=== PATIENT | female | born 1935 | race Caucasian/White ===

== ENCOUNTER 2025-03-14 13:03 | Outpatient (AMB) | payer OTHER, SELFPAY ==
--- NOTE | 2025-03-14 13:05 | A.OFFPC_ITS ---
Vital Signs 03/14/25 13:06 03/14/25 14:02 Height 5 ft 5 in Weight 123 lb BMI 20.5 BP 140/80 H 138/78 Blood Pressure Location Lt brachial Lt brachial Position Sitting Respiration 16 Pulse 86 Pulse Source Pulse Oximeter Temp 96.8 F Temp Source Temporal Artery Scan Pulse Oximetry (%) 98 Oxygen Delivery Method Room Air Intake Visit Reasons: Annual [employer] Required: No Accompanied by: Self / Same As Patient Allergies No Known Allergies Allergy (Verified 03/14/25 13:08) Medication List - Last Reconciled 03/14/25 by Britta Rolon MD amlodipine 5 mg PO DAILY levothyroxine (Synthroid) 100 mcg PO 4XW levothyroxine (Synthroid) 88 mcg PO 2XW Tobacco use date assessed: 03/14/25 Fall risk assessment: No Falls in past year Last assessed Fall Risk: 03/14/25 Dental Screening Dental Screen Date: 03/14/25 Did you have a dental visit in the last 12 months?: Yes Did you have a dental problem in the last 6 months where you did not have access to dental care?: No Was dental information given to patient?: Patient has dentist HPI HPI Comments History of Present Illness Details The patient is an 89-year-old female presenting to [facility] hospital care and for a physical examination. Left hand tremor and numbness: The patient reports an intermittent, subtle tremor in her left hand that is not associated with any specific action, such as holding a cup. She also experiences periodic numbness in her left forearm between the wrist and elbow, which occurs separately from the tremor and is not associated with neck pain. Unilateral right foot edema and paresthesia: The patient reports intermittent swelling of her right foot, which has been occurring for about a year. This swelling is typically noticed at night while sitting in a recliner with her feet elevated and is not painful. The episodes are sporadic, sometimes with weeks in between occurrences, and the left foot is never affected to the same degree. She also experiences occasional pins and needles in the right foot. Pruritus of the legs: The patient has experienced approximately three episodes of severe leg itching over the last five months. The first episode occurred after shaving her legs and lasted for three days. Another episode was triggered by applying Jergens lotion for extra dry skin. The patient reports use of very hot water during showers, which may contribute to skin dryness. She denies any burning sensation associated with the itch. She has an upcoming appointment with a buckle attacher at [facility]. Fatigue: The patient reports periodically experiencing low energy, which is a change from her baseline of always having a lot of energy. She suspects her age is a contributing factor. Hypertension: The patient monitors her blood pressure at home every morning and presented her log for review. Her readings are generally well-controlled in the 120s, though she noted one elevated reading of 144/73, which she attributed to consuming Mong[place]ian food the previous night. Hypothyroidism: The patient is on a stable regimen for hypothyroidism, taking Synthroid 100 mcg four times a week and Synthroid 88 mcg twice a week. Her last lab results were great, but she had been fluctuating previously. Osteoporosis Screening: The patient has an upcoming bone density scan with Dr. Valladares to be scheduled, recent ones were canceled. Review of Systems - Constitutional: Reports intermittent l ow energy/fatigue. - Cardiovascular: Denies chest pain or c hest discomfort. - Musculoskeletal: Reports intermittent trigger finger. Reports a history of arthritis of the spine, right thoracic spine pain, and groin pain. Reports spasms in the left cintron area. Denies experiencing calf pain with right foot swelling. - Integumentary: Reports severe, intermi ttent itching on her legs without a burning sensation. - Neurological: per hpi Physical Exam - Vitals: Blood pressure is 138/78 mmHg. - Neck: Carotids with no bruits. - Cardiovascular: Normal heart sounds ar e auscultated with a soft murmur. - Lungs: Clear to auscultation bilateral ly with no wheezing. - Abdomen: Soft, non tender, non-distend ed, with no tenderness on palpation. - Extremities: The right foot is noted t o be more swollen than the left. There is no pain on palpation of the legs. 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 -- Skin: Seborrheic keratoses are presen t on the back. Excoriations and dryness are also noted on the back. Assessment and Plan 1. Unilateral right lower extremity stacie a - The patient presents with intermittent , painless, unilateral right foot swelling, which is more noticeable on exam than the left. - To evaluate for underlying venous insu fficiency or other pathology, an ultrasound of the right leg will be ordered. 2. Pruritus of the legs - The patient reports severe intermitten t itching, likely secondary to xerosis, which may be exacerbated by her use of hot showers and irritating lotions. - The plan is to advise her to use lukew arm water, switch from Jergens to a thicker, emollient cream like Eucerin, and to apply it to damp skin. - She will also proceed with her already scheduled dermatology appointment for further evaluation. 3. Left upper extremity tremor and numbn ess - The patient's intermittent, separate s ymptoms of tremor and numbness may be associated with cervical spine pathology, such as stenosis - The patient is advised to monitor for any correlation with neck pain and to discuss these symptoms with Dr. Valladares to determine if cervical spine imaging is warranted. 4. Hypothyroidism - The patient is on Synthroid(brand name only per preference) - Her fatigue could potentially be relat ed to thyroid levels. - The plan is to continue her current re gimen of Synthroid 100 mcg four times a week and 88 mcg twice a week. - Prescriptions were sent to her pharmac y with no substitution noted. - Fasting labs, including a TSH, will be ordered for re-evaluation. 5. Essential Hypertension - The patient's blood pressure is well-c ontrolled based on her home monitoring log. 6. Fatigue - The patient reports low energy, which she attributes to her age. - To investigate other potential contrib uting factors, labs including iron panel, thyroid panel, vitamin d will be checked 7. Health Maintenance - obtain preventive screening reports in cluding bone density from Dr. Valladares. Follow up in 6 months Discussion Notes I discussed my assessment and plan with the patient for her multiple concerns. Regarding the intermittent swelling in her right foot, I explained that since it is on one side, I would like to get an ultrasound to investigate further. Patient Instructions - Our office will send an order for an u ltrasound of your right leg - Please go for blood work. You will nee d to fast for this test, which means no food or drink other than water for 8-12 hours beforehand. - For the itching on your legs, try usin g lukewarm water in the shower instead of very hot water. After showering, while your skin is still a bit damp, apply a thick, unscented lotion like Eucerin. - Keep your scheduled appointment with francisco duenas buckle attacher. [facility] Medical History (Updated 03/14/25 @ 17:33 by Britta Rolon MD) Right ankle swelling Fatigue Osteoporosis Osteoarthritis Acquired hypothyroidism Primary hypertension Surgical History (Updated 03/14/25 @ 12:56 by Britta Rolon MD) H/O hand surgery Hx of cataract surgery Family History (Updated 03/14/25 @ 12:58 by Britta Rolon MD) Other Bladder problem Diabetes mellitus Stroke Social History Housing: House Patient Tobacco Use Status: Former Tobacco user Years Smoked: 10 years e-Cigarette/Vaping Use: Never Used service: No Current occupational status: retired Questionnaire PHQ-9 Over the last 2 weeks, how often have you been bothered by any of the following problems? 1. Little interest or pleasure in doing things: not at all 2. Feeling down, depressed, or hopeless: not at all 3. Trouble falling or staying asleep, or sleeping too much: not at all 4. Feeling tired or having little energy: not at all 5. Poor appetite or overeating: not at all 6. Feeling bad about yourself - or that you are a failure or have let yourself or your family down: not at all 7. Trouble concentrating on things, such as reading the newspaper or watching television: not at all 8. Moving or speaking so slowly that other people could have noticed. Or the opposite - being so fidgety or restless that you have been moving around a lot more than usual: not at all 9. Thoughts that you would be better off or of hurting yourself in some way: not at all Total score: 0 Depression Screening Interpretation: Negative Depression Screening Done: Yes 73508 - PHQ-9 Billing: Yes Source: Developed by Drs. Endy Raygoza, Raiza Fox, Alexis Tejada and colleagues, with an educational claire from [employer]. Thrive Questionnaire Date Thrive assessed: 03/14/25 I am a: Patient What is your living situation today?: I have a steady place to live Within the past 12 months, did the food you bought not last and you didn't have the money to get more?: Never true Within the past 12 months, did you worry whether your food would run out before you got money to buy more?: Never true Do you have trouble paying for medicines?: No Do you have trouble getting transportation to medical appointments?: No Do you have trouble paying your heating and electricity bill?: No Do you have trouble taking care of your child, family member or friend?: No Do you have trouble with day-to-day activities such as bathing, preparing meals, shopping, managing finances, etc.?: No Are you currently unemployed and looking for a job?: No Are you interested in more education?: No Please select the resources that you would like help with: None Currently or been in a relationship where the following occur: No concerns reported THRIVE Score: 0 AUDIT C Alcohol Use Questionnaire (AUDIT-C) 1. How often do you have a drink containing alcohol?: 4 or more times a week 2. How many drinks containing alcohol do you have on a typical day when you are drinking?: 1 or 2 3. How often do you have six or more drinks on one occasion?: Never Total Score: 4 ROE-7 AMB Questionnaire ROE-7 Date ROE - 7 assessed: 03/14/25 Feeling nervous, anxious, or on edge: 0 = Not at all Not being able to stop or control worryin = Not at all Worrying too much about different things: 0 = Not at all Trouble relaxin = Not at all Being so restless that it is hard to sit still: 0 = Not at all Becoming easily annoyed or irritable: 0 = Not at all Feeling afraid as if something awful might happen: 0 = Not at all Total ROE-7 score (0-4 normal; 5-9 mild; 10-14 moderate; 15-21 severe): 0 Source: Developed by Drs. Endy Raygoza, Raiza Fox, Alexis Tejada and colleagues, with an educational claire from [employer]. Physical exam (Primary Care) Vital Signs: Last Vital Signs Temp 96.8 F 03/14/25 13:06 Pulse 86 03/14/25 13:06 Resp 16 03/14/25 13:06 BP 138/78 03/14/25 14:02 Pulse Ox 98 03/14/25 13:06 Oxygen Delivery Method Room Air 03/14/25 13:06 BMI result Body Mass Index 20.5 Tobacco/Smoking Status: Tobacco use Status Tobacco use date assessed 03/14/25 03/14/25 13:14 Patient Tobacco Use Status Former Tobacco user 03/14/25 13:14 e-Cigarette/Vaping Use Never Used 03/14/25 13:14 PHQ-9: PHQ-9 Score PHQ-9: Total score 0 03/14/25 14:04 Depression Screening Interpretation: Negative Thrive Assessment: Date of Thrive Assessment Date Thrive assessed 03/14/25 03/14/25 13:14 Currently or been in a relationship where the following occur: No concerns reported Coding Level of Care Code Est Pt Prev Care >65y(27152) Diagnoses Primary hypertension I10 Acquired hypothyroidism E03.9 Fatigue, unspecified type R53.83 Fatigue type: unspecified Osteoporosis, unspecified osteoporosis type, unspecified pathological fracture presence M81.0 Presence of current pathological fracture: unspecified Osteoporosis type: unspecified Right ankle swelling M25.471 Additional Codes PHQ-9 - 61831 - PHQ-9 Billing: Yes ([id number]) Assessment & Plan Assessment & Plan (1) Primary hypertension: Code(s): I10 - Essential (primary) hypertension Category: Medical (2) Acquired hypothyroidism: Code(s): E03.9 - Hypothyroidism, unspecified Category: Medical (3) Fatigue: Code(s): R53.83 - Other fatigue Category: Medical Qualifiers: Fatigue type: unspecified Qualified Code(s): R53.83 - Other fatigue (4) Osteoporosis: Code(s): M81.0 - Age-related osteoporosis without current pathological fracture Category: Medical Qualifiers: Presence of current pathological fracture: unspecified Osteoporosis type: unspecified Qualified Code(s): M81.0 - Age-related osteoporosis without current pathological fracture (5) Right ankle swelling: Code(s): M25.471 - Effusion, right ankle Category: Medical Plan - An order for an ultrasound of the right leg will be placed to evaluate the unilateral swelling. - The patient will go for fasting blood work, to include thyroid and cholesterol panels, - Advised the patient to use lukewarm water for showers and to try a thick moisturizer like Eucerin for her leg itching. - Advised the patient to follow up on her scheduled appointment with dermatology. Orders: Orders Complete Blood Count Auto Diff Today E03.9 - Hypothyroidism, unspecified, I10 - Essential (primary) hypertension, M81.0 - Age-related osteoporosis without current pathological fracture, R53.83 - Other fatigue Comprehensive Met. Panel Today E03.9 - Hypothyroidism, unspecified, I10 - Essential (primary) hypertension, R53.83 - Other fatigue TSH reflex Free T4 Today E03.9 - Hypothyroidism, unspecified, I10 - Essential (primary) hypertension, R53.83 - Other fatigue IRON PROFILE Today E03.9 - Hypothyroidism, unspecified, I10 - Essential (primary) hypertension, R53.83 - Other fatigue Ferritin Today E03.9 - Hypothyroidism, unspecified, I10 - Essential (primary) hypertension, R53.83 - Other fatigue Vitamin B12 Today E03.9 - Hypothyroidism, unspecified, I10 - Essential (primary) hypertension, R53.83 - Other fatigue Microalbumin, Random (w Creat) Today I10 - Essential (primary) hypertension venous duplex LE RT Today M25.471 - Effusion, right ankle Lipid Panel Today E03.9 - Hypothyroidism, unspecified, I10 - Essential (primary) hypertension, R53.83 - Other fatigue Vitamin D 25-OH Total Today E03.9 - Hypothyroidism, unspecified, I10 - Essential (primary) hypertension, R53.83 - Other fatigue Medications: New amlodipine 5 mg PO DAILY 90 tabs 3RF 90 days Synthroid (levothyroxine) 100 mcg PO 4XW 90 tabs 3RF NS Synthroid (levothyroxine) 88 mcg PO 2XW 30 tabs 4RF NS
[2025-03-14 13:06] VITALS: BP 140/80; PULSE 86; RESP 16; TEMP 36; O2SAT 98; BMI 20.5
[2025-03-14 14:02] VITALS: BP 138/78
== END 2025-03-14 14:08 | disposition home or self-care (01) ==
LOC: HO.HMCHD 13:04
PROVIDERS: PCP Internal Medicine; Visit Provider Internal Medicine
DX: Z00.00 Encounter for general adult medical examination without abnormal findings (principal); I10 Essential (primary) hypertension; E03.9 Hypothyroidism, unspecified; R53.83 Other fatigue; M81.0 Age-related osteoporosis without current pathological fracture; M25.471 Effusion, right ankle

== ENCOUNTER 2025-04-04 12:13 | Outpatient (REF) | payer MEDICARE, SELFPAY ==
--- NOTE | ~2025-04-04 | US_ITS ---
EXAMINATION: US TRIPLEX LOWER EXTREMITY, RIGHT CLINICAL INFORMATION: Right leg edema. COMPARISON: None available. TECHNIQUE: Color-flow triplex imaging with spectral analysis and compression Doppler were performed on the right lower extremity. FINDINGS: Respiratory variation, normal compression and augmented flow are noted throughout the right lower extremity. The visualized common femoral vein, superficial femoral vein, profunda femoral vein, popliteal vein and midcalf peroneal and posterior tibial venous segments show no evidence of deep venous thrombosis. There is no Quintanilla's cyst. US/US venous duplex LE RT IMPRESSION: No evidence of deep venous thrombosis involving the right lower extremity. Electronically signed by: Bucky Szymanski MD 04/04/2025 12:48 PM JOHN
== END 2025-04-04 12:14 | disposition home or self-care (01) ==
LOC: HO.US 12:13
PROVIDERS: PCP Internal Medicine; Visit Provider Internal Medicine
DX: R60.0 Localized edema (principal); M25.471 Effusion, right ankle
CPT/HCPCS: 93971

== ENCOUNTER → 2025-04-04 12:17 | Outpatient (BNV) | payer MEDICARE, SELFPAY | PROVIDERS: PCP Internal Medicine; Visit Provider Radiology Diagnostic Radiology | DX: M25.471 Effusion, right ankle (principal) | CPT/HCPCS: 93971 ==

== ENCOUNTER 2025-04-07 09:59 | Outpatient (REF) | payer MEDICARE, SELFPAY ==
[2025-04-07 13:48] LABS: MANUAL DIFF FLAG NO
[2025-04-07 14:22] LABS: Hematocrit 40.5 % (37.0-47.0); Hemoglobin 13.2 g/dl (12.0-16.0); Imm Gran Abs Auto 0.01 X10*3/uL (0.00-0.03); Imm Gran Pct Auto 0.2 % (0.0-0.4); Lymphocytes Absolute Auto 2.0 X10*3/uL (1.2-4.9); Mean Corpuscular HGB Conc 32.6 g/dl (31.0-35.0); Mean Corpuscular Hemoglobin 30.6 pg (27.0-33.0); Mean Corpuscular Volume 94.0 fL (80.0-98.0); NRBC Abs Auto 0.000 X10*3/uL (0.0-0.012); NRBC Pct Auto 0.0 /100WBC (0.0-0.2); Platelet Count 338 X10*3/uL (160-400); Red Blood Count 4.31 X10*6/uL (4.20-5.50); White Blood Count 6.1 X10*3/uL (4.8-10.8)
[2025-04-07 14:23] LABS: Alanine Aminotransferase 12 U/L (0-31); Albumin Level 4.6 g/dL (3.5-5.0); Alkaline Phosphatase 74 U/L (39-117); Anion Gap 10 (12-20); Aspartate Amino Transferase 27 U/L (5-31); Blood Urea Nitrogen 23 mg/dL (9-16); Calcium 9.3 mg/dL (8.4-10.2); Carbon Dioxide 29 mmol/L (22-29); Chloride 106 mmol/L (96-108); Cholesterol 263 mg/dL (<200); Estimated Glomerular Filt Rate > 60; HDL Cholesterol 77 mg/dL (>40); Iron 109 mcg/dL (30-160); Percent Iron Saturation 37 % (15-50); Potassium 3.8 mmol/L (3.3-5.1); Sodium 141 mmol/L (135-145); Total Iron Binding Capacity 291 mcg/dL (228-428); Total Protein 7.4 g/dL (6.5-8.0); Triglycerides 109 mg/dL (<150); Unsaturated Iron Binding 182 ug/dL
[2025-04-07 14:40] LABS: Microalbum/Creatinine Ratio Ur 29.5 ug/mg cr (<30)
[2025-04-07 16:57] LABS: Ferritin 100 ng/mL (10-250)
[2025-04-07 18:16] LABS: Vitamin B12 164 pg/mL (200-900)
== END 2025-04-07 10:00 | disposition home or self-care (01) ==
LOC: HO.HKASLDS 09:59
PROVIDERS: PCP Internal Medicine; Visit Provider Internal Medicine
DX: I10 Essential (primary) hypertension (principal); M81.0 Age-related osteoporosis without current pathological fracture; E03.9 Hypothyroidism, unspecified; R53.83 Other fatigue
CPT/HCPCS: 36415; 80053; 80061; 82043; 82306; 82570; 82607; 82728; 83540; 84443; 85025